=== PATIENT | female | born 2000 | race Caucasian/White ===

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

== ENCOUNTER → 2021-10-01 | Outpatient (CLI) | payer OTHER | END | disposition home or self-care (01) | LOC: COVID19 15:34 | PROVIDERS: ATTEND Internal Medicine | DX: Z20.822 Contact with and (suspected) exposure to COVID-19 (principal) ==

== ENCOUNTER → 2021-10-08 | Outpatient (CLI) | payer OTHER | END | disposition home or self-care (01) | LOC: COVID19 15:01 | PROVIDERS: ATTEND Student in an Organized Health Care Education/Training Program | DX: U07.1 COVID-19 (principal) ==

== ENCOUNTER → 2021-10-15 | Outpatient (CLI) | payer OTHER | END | disposition home or self-care (01) | LOC: COVID19 15:01 | PROVIDERS: ATTEND Student in an Organized Health Care Education/Training Program | DX: U07.1 COVID-19 (principal) ==

== ENCOUNTER → 2022-01-31 | Outpatient (CLI) | payer OTHER | END | disposition home or self-care (01) | LOC: US 08:38 | PROVIDERS: ATTEND Internal Medicine Nephrology | DX: K80.10 Calculus of gallbladder with chronic cholecystitis without obstruction (principal) ==

== ENCOUNTER → 2022-03-21 | Day surgery (SDC) | payer OTHER ==
[2022-03-18 13:38] VITALS: BP 118/69
[~2022-03-21] VITALS: Ht 160 cm; Wt 81.6 kg
[~2022-03-21] MED LIST changes: +COLACE100 MG PO; +PERCOCET 5-3251 EACH PO; +ZOFRAN4 MG PO
[2022-03-21 09:51] VITALS: BP 109/66
[2022-03-21 11:22] VITALS: BP 100/51
[2022-03-21 11:35] VITALS: BP 109/78
[2022-03-21 11:52] VITALS: BP 108/64
[2022-03-21 12:07] VITALS: BP 109/59
[2022-03-21 12:22] VITALS: BP 108/68
== END | disposition home or self-care (01) ==
LOC: SDC 03-18 13:15
PROVIDERS: ATTEND Surgery
DX: K80.12 Calculus of gallbladder with acute and chronic cholecystitis without obstruction (principal); K21.9 Gastro-esophageal reflux disease without esophagitis; F17.210 Nicotine dependence, cigarettes, uncomplicated; Z79.899 Other long term (current) drug therapy

== ENCOUNTER 2023-07-22 18:57 | Emergency (ER) | payer OTHER ==
[~2023-07-22] VITALS: Ht 157.4 cm; Wt 59.0 kg
[2023-07-22 20:08] LABS: BILIRUBIN Negative (Negative); BLOOD 3+ (Negative); CLARITY Cloudy (Clear); COLOR Yellow (Yellow); GLUCOSE Negative (Negative); KETONE Trace (Negative); LEUKO ESTERASE Trace (Negative); NITRITE Negative (Negative)
[2023-07-22 20:35] LABS: BACTERIA 2+; RBC 16-20 rbc/hpf (0-2)
[2023-07-22] MEDS ORDERED: CIPRO500 MG PO (21:06)
== END 2023-07-22 21:26 | disposition home or self-care (01) ==
LOC: ED 18:57
PROVIDERS: Student in an Organized Health Care Education/Training Program
DX: N39.0 Urinary tract infection, site not specified (principal); K21.9 Gastro-esophageal reflux disease without esophagitis; F17.290 Nicotine dependence, other tobacco product, uncomplicated; Z20.822 Contact with and (suspected) exposure to COVID-19

== ENCOUNTER 2025-02-17 10:08 | Emergency (ER) | payer OTHER ==
[~2025-02-17] VITALS: Ht 154.9 cm; Wt 72.6 kg
[~2025-02-17 10:08] MED LIST changes: +CIPRO500 MG PO
[2025-02-17] MEDS ORDERED: Amoxicillin/Clavulanate Pota 875 MG TAB PO ONE (10:25)
[2025-02-17] MEDS ORDERED: Acetaminophen/Oxycodone 5 MG/325 MG TABLET PO ONE (10:25)
[2025-02-17] MEDS ORDERED: AMOX-CLAV 875-1 EACH PO (10:27)
[2025-02-17] MEDS ORDERED: MELOXICAM15 MG PO (10:27)
== END 2025-02-17 10:40 | disposition home or self-care (01) ==
LOC: ED 10:08
DX: K02.9 Dental caries, unspecified (principal); K21.9 Gastro-esophageal reflux disease without esophagitis; F17.210 Nicotine dependence, cigarettes, uncomplicated; Z79.899 Other long term (current) drug therapy

== ENCOUNTER 2025-04-13 13:40 | Emergency (ER) | payer OTHER ==
[~2025-04-13] VITALS: Ht 154.9 cm; Wt 65.8 kg
[~2025-04-13 13:40] MED LIST changes: +AMOX-CLAV 875-1 EACH PO; +MELOXICAM15 MG PO
[2025-04-13] MEDS ORDERED: SODIUM CHLORIDE 0.9% 1,000 ML IV ONE (14:20)
[2025-04-13 14:36] LABS: BASO # 0.0 10*3/uL (0.0-0.1); BASO % 0.3 % (0.0-1.0); EOS # 0.0 10*3/uL (0.0-0.4); EOS % 0.1 % (1.0-4.0); MEAN CELL VOLUME 88.3 fl (81.0-99.0); MEAN CORPUSCULAR HGB 28.8 pg (27.0-31.0); MEAN PLATELET VOLUME 9.4 fl (9.6-12.3); MONO # 0.6 10*3/uL (0.1-1.0); MONO % 5.9 % (3.0-9.0); NEUT # 7.1 10*3/uL (2.3-7.9); NEUT % 72.3 % (47.0-73.0); NUCLEATED RED BLOOD CELL 0.0 % (0.0-0.0); NUCLEATED RED BLOOD CELL 0.0 10*3/uL (0.0-0.0); PLATELET COUNT AUTOMATED 261 10*3/uL (130-400); RED CELL DISTRI WIDTH 12.9 % (0-14.5)
[2025-04-13 14:56] LABS: BUN 8 mg/dl (9-23); SGPT/ALT 9 U/L (5-49)
[2025-04-13 15:34] LABS: BILIRUBIN Negative (Negative); BLOOD Negative (Negative); CLARITY Clear (Clear); COLOR Yellow (Yellow); KETONE Negative (Negative); LEUKO ESTERASE Negative (Negative); NITRITE Negative (Negative); PH 7.0 (4.5-8.0); SPECIFIC GRAVITY <= 1.005 (1.001-1.030); UROBILINOGEN 0.2 E.U./dl (0.0-1.0)
[2025-04-13] MEDS ORDERED: PENICILLIN VK500 MG PO (15:47)
[2025-04-13] MEDS ORDERED: Ondansetron4 MG PO (15:49)
[2025-04-13] MEDS ORDERED: PENICILLIN V POTASSIUM 500 MG TAB PO ONE (15:50)
[2025-04-13 15:58] LABS: BACTERIA TRACE; WBC 0-2 wbc/hpf (0-5)
== END 2025-04-13 15:59 | disposition home or self-care (01) ==
LOC: ED 13:40
PROVIDERS: Nurse Practitioner Family
DX: K04.7 Periapical abscess without sinus (principal); A08.4 Viral intestinal infection, unspecified; R42 Dizziness and giddiness; R11.2 Nausea with vomiting, unspecified; K21.9 Gastro-esophageal reflux disease without esophagitis

== ENCOUNTER 2025-09-13 14:03 | Emergency (ER) | payer OTHER ==
[~2025-09-13] VITALS: Ht 154.9 cm; Wt 65.8 kg
[~2025-09-13 14:03] MED LIST changes: +Ondansetron4 MG PO; +PENICILLIN VK500 MG PO
== END 2025-09-13 16:14 | disposition left against medical advice (07) ==
LOC: ED 14:03
DX: M25.531 Pain in right wrist (principal); K21.9 Gastro-esophageal reflux disease without esophagitis; Z87.440 Personal history of urinary (tract) infections; Z53.29 Procedure and treatment not carried out because of patient's decision for other reasons